=== PATIENT | male | born 1935 | race Caucasian/White ===

== ENCOUNTER 2019-03-06 12:01 | Inpatient (IN) | payer OTHER ==
[~2019-03-06] VITALS: Ht 182.9 cm; Wt 79.5 kg
[~2019-03-06 12:01] MED LIST: VANCOMYCIN 1gm/H2O 200ml PB 200 ML IV SCH
[2019-03-06] MEDS ORDERED: normal saline 1000ML IV soln IVB ONE ×3 (12:55→16:45)
[2019-03-06] MEDS ORDERED: benzonatate 100mg capsule PO ONE (12:55)
[2019-03-06] MEDS ORDERED: ipratropium/albuterol 3ml nebule NEB ONE (12:55)
[2019-03-06 13:27] LABS: BASOPHILS # (AUTO) 0.1 X10'3 (0-0.2); BASOPHILS % (AUTO) 0.5 % (0-1); EOSINOPHILS % (AUTO) 0 % (0-6); HEMOGLOBIN 10.8 g/dl (14.0-17.9); LYMPHOCYTES # (AUTO) 0.9 X10'3 (1.1-4.8); LYMPHOCYTES % (AUTO) 3.4 % (21-51); MEAN CORPUSCULAR HEMOGLOBIN 33.4 PG (27.0-31.0); MEAN CORPUSCULAR HGB CONC 33.6 g/dL (33.0-36.5); MEAN CORPUSCULAR VOLUME 99.4 FL (78-98); MEAN PLATELET VOLUME 9.6 FL (7.4-10.4); MONOCYTES # (AUTO) 1.4 X10'3 (0-0.9); MONOCYTES % (AUTO) 5.3 % (2-12); NEUTROPHILS # (AUTO) 23.8 X10'3 (1.8-7.7); NEUTROPHILS % (AUTO) 90.8 % (42-75); PLATELET COUNT 572 X10'3 (140-440); RED BLOOD COUNT 3.22 X10'6 (4.70-6.10); RED CELL DISTRIBUTION WIDTH 17.2 % (11.5-14.5)
[2019-03-06 13:30] LABS: WHITE BLOOD COUNT 26.2 X10'3 (4.5-11.0)
[2019-03-06 14:02] LABS: ANION GAP 11 (8-16); BILIRUBIN,TOTAL 1.6 MG/DL (0.1-1.0); BLOOD UREA NITROGEN 21 MG/DL (7-18); BUN/CREATININE RATIO 19.1 (5.4-32.0); CALCIUM 8.7 MG/DL (8.5-10.1); CHLORIDE 99 MMOL/L (99-107); GLUCOSE 147 MG/DL (70-104); SODIUM 138 MMOL/L (135-145); TOTAL CARBON DIOXIDE 28.1 MMOL/L (24-32); eGFR 64 ML/MIN
[2019-03-06 14:03] LABS: ALANINE AMINOTRANSFERASE 43 U/L (12-78); ALBUMIN 3.3 G/DL (3.4-5.0); ALBUMIN/GLOBULIN RATIO 0.7 (1.1-1.5); ALKALINE PHOSPHATASE 88 IU/L (46-116); ASPARTATE AMINO TRANSFERASE 40 U/L (10-37)
[2019-03-06 14:07] LABS: TOTAL CELLS COUNTED 100
[2019-03-06 14:08] LABS: ANISOCYTOSIS 1+; PLATELET ESTIMATE INCREASED; TOXIC GRANULATION 2+
[2019-03-06 14:09] LABS: SCHISTOCYTES FEW
[2019-03-06 14:10] LABS: POLYCHROMASIA FEW; POTASSIUM 2.9 MMOL/L (3.5-5.1)
[2019-03-06] MEDS ORDERED: potassium Cl 10 mEq/100mL bag IV ONE (14:15)
[2019-03-06] MEDS ORDERED: celeCOXIB 100mg capsule PO SCH (15:20)
[2019-03-06 15:27] LABS: CLARITY,URINE SLIGHTLY CLOUDY (Clear); COLOR,URINE AMBER (Yellow); GLUCOSE, URINE NEGATIVE (Neg); KETONES,URINE 15 mg/dl (Neg); LEUKOCYTE ESTERASE ,URINE NEGATIVE (Neg); NITRITES, URINE NEGATIVE (Neg); OCCULT BLOOD,URINE TRACE-INTACT (Neg); PROTEIN,URINE 100 mg/dl (Neg)
[2019-03-06 15:40] LABS: UA COLLECTION TYPE STRAIGHT CATH
[2019-03-06 15:42] LABS: MUCUS STRANDS MODERATE /LPF (Neg); SQUAMOUS EPITHELIAL CELL,UR FEW /LPF (FEW)
[2019-03-06 15:44] LABS: RBC,URINE 0-2 /HPF (0-2); WBC,URINE 0-4 /HPF (0-4)
[2019-03-06 15:45] LABS: BACTERIA,URINE 2+ /HPF (Neg)
[2019-03-06] MEDS ORDERED: levoFLOXACIN-Levaquin 750MG/D5 150 ML IV ONE (16:30)
[2019-03-06] MEDS ORDERED: NO HOME MEDS (17:12)
[2019-03-06] MEDS ORDERED: ondansetron/PF 4mg/2ml inj IV PRN (18:35)
[2019-03-06] MEDS ORDERED: magnesium Cl slow-release 64mg tablet PO PRN (18:35)
[2019-03-06] MEDS ORDERED: acetaminophen 325mg tablet PO PRN (18:35)
[2019-03-06] MEDS ORDERED: potassium CL 10mEq/100ml bag 100 ML IV PRN ×2 (18:35)
[2019-03-06] MEDS ORDERED: magnesium 4gm in 100ml NS 100 ML IV PRN (18:35)
[2019-03-06] MEDS ORDERED: magnesium 2GM in 50ml NS 50 ML IV PRN (18:35)
[2019-03-06] MEDS ORDERED: morphine 2 MG/ML inj. syringe IV PRN (18:35)
[2019-03-06] MEDS: normal saline 1000ml 1,000 ML IV SCH (19:38)
[2019-03-06] MEDS: K and/or MAG REPLACEMENT MC SCH (20:00)
[2019-03-06] MEDS: potassium Cl 20 mEq SR tablet PO PRN (20:03)
[2019-03-06 21:40] VITALS: BP 154/76
--- NOTE | 2019-03-06 21:40 | NUR ---
PT ARRIVED FROM ER TO 4012B. PT HAS BEEN ORIENTED TO THE ROOM. RECEIVED REPORT FROM MONE HUNT PRIOR TO PT'S ARRIVAL.
[2019-03-06] MEDS: HYDROcodone/acetaminophen 5mg/325mg tablet PO PRN (21:50)
[2019-03-06] MEDS ORDERED: VANCOMYCIN 1gm/H2O 200ml PB 200 ML IV SCH (22:40)
[2019-03-07] MEDS: potassium Cl 20 mEq SR tablet PO PRN (01:00)
[2019-03-07] MEDS: piperacillin/tazo 3.375gm/50ml 50 ML IV SCH ×3 (01:01→16:43)
[2019-03-07] MEDS: HYDROcodone/acetaminophen 5mg/325mg tablet PO PRN ×3 (04:56→23:45)
[2019-03-07 05:00] VITALS: BP 167/71
[2019-03-07 06:21] LABS: BASOPHILS % (AUTO) 0.1 % (0-1); EOSINOPHILS % (AUTO) 0 % (0-6); HEMOGLOBIN 9.8 g/dl (14.0-17.9); LYMPHOCYTES # (AUTO) 0.7 X10'3 (1.1-4.8); LYMPHOCYTES % (AUTO) 4.2 % (21-51); MEAN CORPUSCULAR HEMOGLOBIN 33.7 PG (27.0-31.0); MEAN CORPUSCULAR HGB CONC 33.7 g/dL (33.0-36.5); MEAN CORPUSCULAR VOLUME 99.9 FL (78-98); MEAN PLATELET VOLUME 9.2 FL (7.4-10.4); MONOCYTES # (AUTO) 0.8 X10'3 (0-0.9); MONOCYTES % (AUTO) 4.6 % (2-12); NEUTROPHILS # (AUTO) 15.9 X10'3 (1.8-7.7); NEUTROPHILS % (AUTO) 91.1 % (42-75); PLATELET COUNT 350 X10'3 (140-440); RED BLOOD COUNT 2.91 X10'6 (4.70-6.10); RED CELL DISTRIBUTION WIDTH 16.6 % (11.5-14.5); WHITE BLOOD COUNT 17.5 X10'3 (4.5-11.0)
--- NOTE | 2019-03-07 06:23 | NUR ---
Problems reprioritized. Patient report given, questions answered & plan of care reviewed with MONE CA.
--- NOTE | 2019-03-07 06:49 | NUR ---
Patient in room ORTHO 4012B. I have received report from MONE MUSE and had the opportunity to ask questions and assume patient care.
[2019-03-07 07:09] LABS: ALBUMIN 2.7 G/DL (3.4-5.0); ANION GAP 11 (8-16); BLOOD UREA NITROGEN 20 MG/DL (7-18); CALCIUM 7.8 MG/DL (8.5-10.1); CHLORIDE 106 MMOL/L (99-107); CREATININE 0.87 MG/DL (0.60-1.10); GLUCOSE 93 MG/DL (70-104); POTASSIUM 3.6 MMOL/L (3.5-5.1); SODIUM 143 MMOL/L (135-145); TOTAL CARBON DIOXIDE 26.2 MMOL/L (24-32); eGFR 84 ML/MIN
[2019-03-07 07:32] LABS: % IRON SATURATION 64 % (11-46); IRON 92 UG/DL (53-167); TOTAL IRON BINDING CAPACITY 144 UG/DL (259-388)
[2019-03-07] MEDS: K and/or MAG REPLACEMENT MC SCH ×2 (08:00→19:49)
[2019-03-07] MEDS ORDERED: VANCOMYCIN 1gm/H2O 200ml PB 200 ML IV SCH (09:07)
[2019-03-07 10:00] VITALS: BP 150/74
[2019-03-07 11:15] LABS: ANISOCYTOSIS 1+; PLATELET ESTIMATE NORMAL; TOTAL CELLS COUNTED 100
[2019-03-07 11:16] LABS: POLYCHROMASIA FEW; SCHISTOCYTES 1+; TEAR DROP CELLS FEW
[2019-03-07 11:17] LABS: TOXIC GRANULATION 1+
[2019-03-07] MEDS: VANCOMYCIN 1gm/H2O 200ml PB 200 ML IV SCH ×2 (14:29→23:49)
[2019-03-07] MEDS: ipratropium/albuterol 3ml nebule NEB SCH ×2 (15:10→20:03)
[2019-03-07 18:00] VITALS: BP_SYST 118; BP_SYST 167; BP_DIAS 71; BP_DIAS 95
--- NOTE | 2019-03-07 18:00 | NUR ---
Patient in room ORTHO 4012. I have received report from MONE Juarez and had the opportunity to ask questions and assume patient care. Addendum: 03/07/19 at 1846 by Christine Ivan RN Amended: Links added.
--- NOTE | 2019-03-07 18:23 | NUR ---
Problems reprioritized. Patient report given, questions answered & plan of care reviewed with MONE CUEVAS.
[2019-03-07] MEDS: heparin, porcine 5000 units/ml vial SQ SCH (19:48)
[2019-03-07] MEDS: lactobacillus rhamnosus 10,000 MMU CELLS/CAPSULE PO SCH (19:48)
[2019-03-07 22:00] VITALS: BP 126/60
[2019-03-08] MEDS: piperacillin/tazo 3.375gm/50ml 50 ML IV SCH ×4 (01:18→23:38)
[2019-03-08] MEDS: HYDROcodone/acetaminophen 5mg/325mg tablet PO PRN ×3 (06:47→19:58)
[2019-03-08 06:52] VITALS: BP 105/48
--- NOTE | 2019-03-08 06:54 | NUR ---
Patient in room ORTHO 4012B. I have received report from MONE CUEVAS and had the opportunity to ask questions and assume patient care.
[2019-03-08 07:23] LABS: ALBUMIN 2.5 G/DL (3.4-5.0); ANION GAP 8 (8-16); BLOOD UREA NITROGEN 15 MG/DL (7-18); CALCIUM 7.7 MG/DL (8.5-10.1); CHLORIDE 103 MMOL/L (99-107); CREATININE 0.88 MG/DL (0.60-1.10); GLUCOSE 88 MG/DL (70-104); MAGNESIUM 2.1 MG/DL (1.5-2.4); POTASSIUM 3.1 MMOL/L (3.5-5.1); SODIUM 139 MMOL/L (135-145); TOTAL CARBON DIOXIDE 27.8 MMOL/L (24-32); eGFR 83 ML/MIN
[2019-03-08 07:26] LABS: BASOPHILS % (AUTO) 0.2 % (0-1); EOSINOPHILS # (AUTO) 0.1 X10'3 (0-0.9); EOSINOPHILS % (AUTO) 0.3 % (0-6); HEMATOCRIT 27.4 % (42.0-52.0); HEMOGLOBIN 9.3 g/dl (14.0-17.9); LYMPHOCYTES # (AUTO) 1.2 X10'3 (1.1-4.8); LYMPHOCYTES % (AUTO) 5.9 % (21-51); MEAN CORPUSCULAR HEMOGLOBIN 33.9 PG (27.0-31.0); MEAN CORPUSCULAR VOLUME 99.9 FL (78-98); MEAN PLATELET VOLUME 9.3 FL (7.4-10.4); MONOCYTES # (AUTO) 0.7 X10'3 (0-0.9); MONOCYTES % (AUTO) 3.6 % (2-12); NEUTROPHILS # (AUTO) 17.9 X10'3 (1.8-7.7); PLATELET COUNT 400 X10'3 (140-440); RED BLOOD COUNT 2.75 X10'6 (4.70-6.10); RED CELL DISTRIBUTION WIDTH 16.9 % (11.5-14.5); WHITE BLOOD COUNT 19.9 X10'3 (4.5-11.0)
[2019-03-08] MEDS: ipratropium/albuterol 3ml nebule NEB SCH ×3 (07:53→20:17)
[2019-03-08] MEDS: K and/or MAG REPLACEMENT MC SCH ×2 (08:00→20:00)
[2019-03-08 10:00] VITALS: BP 147/99
[2019-03-08] MEDS: lactobacillus rhamnosus 10,000 MMU CELLS/CAPSULE PO SCH ×2 (10:06→19:57)
[2019-03-08] MEDS: potassium Cl 20 mEq SR tablet PO PRN ×2 (10:07→16:10)
[2019-03-08] MEDS: heparin, porcine 5000 units/ml vial SQ SCH ×2 (10:09→20:00)
[2019-03-08] MEDS ORDERED: VANCOMYCIN LEVEL IV ONE (10:30)
[2019-03-08 10:37] LABS: ANISOCYTOSIS 1+; NUCLEATED RED BLOOD CELLS 1 /100WBC (0-0); PLATELET ESTIMATE NORMAL; TOTAL CELLS COUNTED 100
[2019-03-08 10:38] LABS: TOXIC GRANULATION 1+
[2019-03-08 10:39] LABS: POLYCHROMASIA 1+; SCHISTOCYTES 1+
[2019-03-08] MEDS: VANCOmycin 1250MG/NS 250ml Bag 250 ML IV SCH (16:07)
[2019-03-08 18:00] VITALS: BP 144/63
[2019-03-08] MEDS: normal saline 1000ml 1,000 ML IV SCH (18:31)
--- NOTE | 2019-03-08 18:49 | NUR ---
Problems reprioritized. Patient report given, questions answered & plan of care reviewed with MONE FAIR.
[2019-03-08 22:00] VITALS: BP 128/65
[2019-03-09] MEDS: VANCOmycin 1250MG/NS 250ml Bag 250 ML IV SCH (05:46)
[2019-03-09] MEDS: HYDROcodone/acetaminophen 5mg/325mg tablet PO PRN ×3 (05:48→17:32)
[2019-03-09 06:00] VITALS: BP 152/69
[2019-03-09 06:05] LABS: BASOPHILS # (AUTO) 0.1 X10'3 (0-0.2); BASOPHILS % (AUTO) 0.3 % (0-1); EOSINOPHILS # (AUTO) 0.2 X10'3 (0-0.9); EOSINOPHILS % (AUTO) 0.9 % (0-6); HEMATOCRIT 27.9 % (42.0-52.0); HEMOGLOBIN 9.4 g/dl (14.0-17.9); LYMPHOCYTES % (AUTO) 5.7 % (21-51); MEAN CORPUSCULAR HEMOGLOBIN 33.8 PG (27.0-31.0); MEAN CORPUSCULAR HGB CONC 33.7 g/dL (33.0-36.5); MEAN CORPUSCULAR VOLUME 100.3 FL (78-98); MONOCYTES # (AUTO) 0.7 X10'3 (0-0.9); MONOCYTES % (AUTO) 3.7 % (2-12); NEUTROPHILS # (AUTO) 16.3 X10'3 (1.8-7.7); NEUTROPHILS % (AUTO) 89.4 % (42-75); PLATELET COUNT 424 X10'3 (140-440); RED BLOOD COUNT 2.78 X10'6 (4.70-6.10); RED CELL DISTRIBUTION WIDTH 17.3 % (11.5-14.5); WHITE BLOOD COUNT 18.2 X10'3 (4.5-11.0)
--- NOTE | 2019-03-09 06:50 | NUR ---
Patient in room ORTHO 4012. I have received report from Michael SHORE and had the opportunity to ask questions and assume patient care.
[2019-03-09 06:58] LABS: ALBUMIN 2.5 G/DL (3.4-5.0); ANION GAP 9 (8-16); BLOOD UREA NITROGEN 13 MG/DL (7-18); BUN/CREATININE RATIO 14.6 (5.4-32.0); CALCIUM 7.9 MG/DL (8.5-10.1); CHLORIDE 105 MMOL/L (99-107); CREATININE 0.89 MG/DL (0.60-1.10); GLUCOSE 83 MG/DL (70-104); MAGNESIUM 2.2 MG/DL (1.5-2.4); POTASSIUM 3.5 MMOL/L (3.5-5.1); SODIUM 141 MMOL/L (135-145); TOTAL CARBON DIOXIDE 26.8 MMOL/L (24-32); eGFR 82 ML/MIN
[2019-03-09] MEDS: ipratropium/albuterol 3ml nebule NEB SCH ×3 (07:33→21:13)
[2019-03-09] MEDS: K and/or MAG REPLACEMENT MC SCH ×2 (07:47→20:00)
[2019-03-09 08:19] LABS: ANISOCYTOSIS 1+; PLATELET ESTIMATE NORMAL; POIKILOCYTOSIS FEW; POLYCHROMASIA FEW; TOTAL CELLS COUNTED 100; TOXIC GRANULATION 1+
[2019-03-09] MEDS: heparin, porcine 5000 units/ml vial SQ SCH ×2 (08:22→20:42)
[2019-03-09] MEDS: lactobacillus rhamnosus 10,000 MMU CELLS/CAPSULE PO SCH ×2 (08:22→20:41)
[2019-03-09] MEDS: piperacillin/tazo 3.375gm/50ml 50 ML IV SCH (08:23)
[2019-03-09 10:00] VITALS: BP 103/58
--- NOTE | 2019-03-09 18:27 | NUR ---
Problems reprioritized. Patient report given, questions answered & plan of care reviewed with Michael SHORE.
[2019-03-10] MEDS ORDERED: VANCOMYCIN LEVEL IV ONE (02:30)
[2019-03-10 05:00] VITALS: BP 171/98
[2019-03-10] MEDS: HYDROcodone/acetaminophen 5mg/325mg tablet PO PRN ×2 (05:01→09:15)
--- NOTE | 2019-03-10 06:51 | NUR ---
Patient in room ORTHO 4012B. I have received report from MONE FAIR and had the opportunity to ask questions and assume patient care.
[2019-03-10] MEDS: K and/or MAG REPLACEMENT MC SCH ×2 (07:16→08:00)
[2019-03-10 07:28] LABS: BASOPHILS # (AUTO) 0.1 X10'3 (0-0.2); BASOPHILS % (AUTO) 0.4 % (0-1); EOSINOPHILS # (AUTO) 0.1 X10'3 (0-0.9); EOSINOPHILS % (AUTO) 0.3 % (0-6); HEMATOCRIT 28.1 % (42.0-52.0); HEMOGLOBIN 9.4 g/dl (14.0-17.9); LYMPHOCYTES # (AUTO) 1.1 X10'3 (1.1-4.8); MEAN CORPUSCULAR HEMOGLOBIN 33.2 PG (27.0-31.0); MEAN CORPUSCULAR HGB CONC 33.5 g/dL (33.0-36.5); MEAN CORPUSCULAR VOLUME 99.1 FL (78-98); MEAN PLATELET VOLUME 8.6 FL (7.4-10.4); MONOCYTES % (AUTO) 4.6 % (2-12); NEUTROPHILS % (AUTO) 89.7 % (42-75); PLATELET COUNT 399 X10'3 (140-440); RED BLOOD COUNT 2.84 X10'6 (4.70-6.10); RED CELL DISTRIBUTION WIDTH 17.7 % (11.5-14.5); WHITE BLOOD COUNT 22.3 X10'3 (4.5-11.0)
[2019-03-10 07:52] LABS: ANISOCYTOSIS 1+; PLATELET ESTIMATE NORMAL; POLYCHROMASIA FEW; TOTAL CELLS COUNTED 100
[2019-03-10 07:56] LABS: ALBUMIN 2.6 G/DL (3.4-5.0); ANION GAP 10 (8-16); BLOOD UREA NITROGEN 19 MG/DL (7-18); BUN/CREATININE RATIO 10.1 (5.4-32.0); CALCIUM 8.3 MG/DL (8.5-10.1); CHLORIDE 107 MMOL/L (99-107); CREATININE 1.89 MG/DL (0.60-1.10); GLUCOSE 103 MG/DL (70-104); MAGNESIUM 2.4 MG/DL (1.5-2.4); POTASSIUM 3.3 MMOL/L (3.5-5.1); SODIUM 143 MMOL/L (135-145); TOTAL CARBON DIOXIDE 26.4 MMOL/L (24-32); VANCOMYCIN,TROUGH 13.1 UG/ML (6.0-14.0); eGFR 34 ML/MIN
[2019-03-10] MEDS: lactobacillus rhamnosus 10,000 MMU CELLS/CAPSULE PO SCH (08:44)
[2019-03-10] MEDS: heparin, porcine 5000 units/ml vial SQ SCH (08:44)
[2019-03-10] MEDS: ipratropium/albuterol 3ml nebule NEB SCH ×2 (08:59→15:17)
[2019-03-10 09:00] VITALS: BP 146/77
--- NOTE | 2019-03-10 09:14 | NUR ---
PAGER ID: [phone] MESSAGE: LANNY [id number]:MICHAEL LEGGETT 4012B...CAN I GET A NEW ORDER FOR POTASSIUM REPLACEMENT, K+ 3.3
[2019-03-10] MEDS ORDERED: levoFLOXACIN 750MG TABLET PO SCH (11:00)
[2019-03-10] MEDS ORDERED: ALBU8HFA PO (12:44)
[2019-03-10] MEDS ORDERED: LEVO750T46 PO (12:44)
--- NOTE | 2019-03-10 15:59 | NUR ---
pt dc in stable condition
[2019-03-11] MEDS ORDERED: DOXY100C43 PO (12:57)
[2019-03-11] MEDS ORDERED: OMEP40CA13 PO (12:57)
[2019-03-11] MEDS ORDERED: NO HOME MEDS (23:55)
[2019-03-13] MEDS ORDERED: RISE35TA PO (19:25)
== END 2019-03-10 15:45 | disposition home or self-care (01) | DRG 871 ==
LOC: ER 12:04 → ED HOLD 18:31 → EDBEDREQ 20:52 → ORTHO 4S 21:30
PROVIDERS: ADMIT Internal Medicine; ATTEND Internal Medicine
DX: A41.9 Sepsis, unspecified organism (principal); J18.9 Pneumonia, unspecified organism; M48.56XA Collapsed vertebra, not elsewhere classified, lumbar region, initial encounter for fracture; D53.9 Nutritional anemia, unspecified; E87.6 Hypokalemia; M85.80 Other specified disorders of bone density and structure, unspecified site; R32 Unspecified urinary incontinence; Z59.0 Homelessness; Z79.899 Other long term (current) drug therapy; Z85.46 Personal history of malignant neoplasm of prostate; Z87.891 Personal history of nicotine dependence; Z92.3 Personal history of irradiation
CPT/HCPCS: 36415; 71046; 72040; 72070; 72100; 80048; 80053; 80202; 81001; 83540; 83550; 83605; 83735; 84153; 84484; 85025; 87040; 87070; 87081; 87502; 87503; 93005; 94640; 94760; 97116; 97162; 97530; 97535; 99285; G0378; J1644; J1956; J2270; J2543; J3370; J3480; J7030

== ENCOUNTER 2019-03-11 11:38 | Emergency (ER) | payer MEDICARE, OTHER ==
[~2019-03-11] VITALS: Ht 172.7 cm; Wt 84.1 kg
[~2019-03-11 11:38] MED LIST changes: +ALBU8HFA PO; +LEVO750T46 PO; -VANCOMYCIN 1gm/H2O 200ml PB 200 ML IV SCH
[2019-03-11] MEDS ORDERED: pantoprazole 40MG/NS 100ML BAG 100 ML IV SCH (12:15)
[2019-03-11] MEDS ORDERED: pantoprazole 40 MG vial IV ONE (12:15)
[2019-03-11 12:49] LABS: BASOPHILS # (AUTO) 0.1 X10'3 (0-0.2); BASOPHILS % (AUTO) 0.4 % (0-1); EOSINOPHILS # (AUTO) 0.1 X10'3 (0-0.9); EOSINOPHILS % (AUTO) 0.2 % (0-6); HEMATOCRIT 31.3 % (42.0-52.0); HEMOGLOBIN 10.4 g/dl (14.0-17.9); LYMPHOCYTES # (AUTO) 1.2 X10'3 (1.1-4.8); MEAN CORPUSCULAR HEMOGLOBIN 33.2 PG (27.0-31.0); MEAN CORPUSCULAR HGB CONC 33.3 g/dL (33.0-36.5); MEAN CORPUSCULAR VOLUME 99.6 FL (78-98); MONOCYTES % (AUTO) 3.9 % (2-12); NEUTROPHILS # (AUTO) 22.2 X10'3 (1.8-7.7); NEUTROPHILS % (AUTO) 90.5 % (42-75); PLATELET COUNT 503 X10'3 (140-440); RED BLOOD COUNT 3.14 X10'6 (4.70-6.10); RED CELL DISTRIBUTION WIDTH 17.8 % (11.5-14.5); WHITE BLOOD COUNT 24.5 X10'3 (4.5-11.0)
[2019-03-11 12:56] LABS: PARTIAL THROMBOPLASTIN TIME 27 SECONDS (22-32)
[2019-03-11] MEDS ORDERED: OMEP40CA13 PO (12:57)
[2019-03-11] MEDS ORDERED: DOXY100C43 PO (12:57)
[2019-03-11 13:02] LABS: ALANINE AMINOTRANSFERASE 40 U/L (12-78); ALBUMIN/GLOBULIN RATIO 0.6 (1.1-1.5); ALKALINE PHOSPHATASE 129 IU/L (46-116); ANION GAP 9 (8-16); ASPARTATE AMINO TRANSFERASE 39 U/L (10-37); BLOOD UREA NITROGEN 28 MG/DL (7-18); BUN/CREATININE RATIO 13.2 (5.4-32.0); CALCIUM 8.8 MG/DL (8.5-10.1); CHLORIDE 107 MMOL/L (99-107); CREATININE 2.12 MG/DL (0.60-1.10); GLUCOSE 113 MG/DL (70-104); POTASSIUM 3.4 MMOL/L (3.5-5.1); SODIUM 143 MMOL/L (135-145); TOTAL CARBON DIOXIDE 26.7 MMOL/L (24-32); TOTAL PROTEIN 7.7 G/DL (6.4-8.2); eGFR 30 ML/MIN
[2019-03-11] MEDS ORDERED: ringers solution, lacted 1,000 ML IV ONE (13:20)
[2019-03-11 14:10] LABS: ANISOCYTOSIS 1+; NUCLEATED RED BLOOD CELLS 1 /100WBC (0-0); PLATELET ESTIMATE INCREASED; TOTAL CELLS COUNTED 100; TOXIC GRANULATION 1+
[2019-03-11 14:11] LABS: POLYCHROMASIA 1+
[2019-03-11 15:58] VITALS: BP 153/66
[2019-03-11] MEDS ORDERED: NO HOME MEDS (23:55)
[2019-03-13 10:32] LABS: OCCULT BLOOD STOOL POSITIVE (Neg)
[2019-03-13] MEDS ORDERED: RISE35TA PO (19:25)
== END 2019-03-11 16:01 | disposition home or self-care (01) ==
LOC: ER 11:39
DX: K92.1 Melena (principal); J18.9 Pneumonia, unspecified organism; R10.84 Generalized abdominal pain; Z59.0 Homelessness; Z56.0 Unemployment, unspecified; Z85.46 Personal history of malignant neoplasm of prostate; Z79.899 Other long term (current) drug therapy
CPT/HCPCS: 36415; 71045; 80053; 82140; 82272; 84484; 85025; 85610; 85730; 86885; 86900; 86901; 93005; 96374; 99284; C9113; J7120

== ENCOUNTER 2019-03-11 19:03 | Emergency (ER) | payer MEDICARE ==
[~2019-03-11] VITALS: Ht 172.7 cm; Wt 84.1 kg
[~2019-03-11 19:03] MED LIST changes: +DOXY100C43 PO; +OMEP40CA13 PO
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
[2019-03-11] MEDS ORDERED: CefTRIAXone 2gm/D5W 50ml 50 ML IV ONE (20:35)
[2019-03-11] MEDS ORDERED: normal saline 1000ML IV soln IVB ONE (20:40)
[2019-03-11 21:00] LABS: BASOPHILS # (AUTO) 0.3 X10'3 (0-0.2); BASOPHILS % (AUTO) 1.1 % (0-1); EOSINOPHILS # (AUTO) 0.1 X10'3 (0-0.9); EOSINOPHILS % (AUTO) 0.3 % (0-6); HEMATOCRIT 29.1 % (42.0-52.0); LYMPHOCYTES # (AUTO) 1.4 X10'3 (1.1-4.8); MEAN CORPUSCULAR HEMOGLOBIN 34.2 PG (27.0-31.0); MEAN CORPUSCULAR HGB CONC 34.4 g/dL (33.0-36.5); MEAN CORPUSCULAR VOLUME 99.4 FL (78-98); MEAN PLATELET VOLUME 8.4 FL (7.4-10.4); MONOCYTES # (AUTO) 0.9 X10'3 (0-0.9); MONOCYTES % (AUTO) 3.6 % (2-12); NEUTROPHILS # (AUTO) 21.2 X10'3 (1.8-7.7); PLATELET COUNT 449 X10'3 (140-440); RED BLOOD COUNT 2.93 X10'6 (4.70-6.10); RED CELL DISTRIBUTION WIDTH 17.9 % (11.5-14.5); WHITE BLOOD COUNT 23.8 X10'3 (4.5-11.0)
[2019-03-11 21:13] LABS: PARTIAL THROMBOPLASTIN TIME 28 SECONDS (22-32)
[2019-03-11 21:14] LABS: ALANINE AMINOTRANSFERASE 41 U/L (12-78); ALBUMIN 2.9 G/DL (3.4-5.0); ALBUMIN/GLOBULIN RATIO 0.7 (1.1-1.5); ALKALINE PHOSPHATASE 123 IU/L (46-116); ANION GAP 10 (8-16); ASPARTATE AMINO TRANSFERASE 40 U/L (10-37); BILIRUBIN,TOTAL 0.9 MG/DL (0.1-1.0); BLOOD UREA NITROGEN 29 MG/DL (7-18); BUN/CREATININE RATIO 13.9 (5.4-32.0); CALCIUM 8.3 MG/DL (8.5-10.1); CHLORIDE 106 MMOL/L (99-107); CREATININE 2.09 MG/DL (0.60-1.10); GLUCOSE 108 MG/DL (70-104); MAGNESIUM 2.4 MG/DL (1.5-2.4); POTASSIUM 3.2 MMOL/L (3.5-5.1); SODIUM 141 MMOL/L (135-145); TOTAL CARBON DIOXIDE 25.3 MMOL/L (24-32); TOTAL PROTEIN 7.3 G/DL (6.4-8.2); eGFR 30 ML/MIN
[2019-03-11 21:24] LABS: ANISOCYTOSIS 1+; PLATELET ESTIMATE INCREASED; POLYCHROMASIA 1+; TOTAL CELLS COUNTED 100; TOXIC GRANULATION 1+
[2019-03-11 23:02] LABS: CLARITY,URINE CLEAR (Clear); COLOR,URINE YELLOW (Yellow); GLUCOSE, URINE NEGATIVE (Neg); KETONES,URINE NEGATIVE (Neg); LEUKOCYTE ESTERASE ,URINE SMALL (Neg); NITRITES, URINE NEGATIVE (Neg); OCCULT BLOOD,URINE TRACE-INTACT (Neg); PH,URINE 5.5 (4.8-8.0); PROTEIN,URINE NEGATIVE (Neg); UROBILINOGEN,URINE 0.2 E.U/dL (0.2-1.0)
[2019-03-11 23:07] LABS: UA COLLECTION TYPE CLN CATCH MIDSTREAM
[2019-03-11 23:08] LABS: BACTERIA,URINE FEW /HPF (Neg); RBC,URINE 0-2 /HPF (0-2); SQUAMOUS EPITHELIAL CELL,UR FEW /LPF (FEW)
[2019-03-11] MEDS ORDERED: NO HOME MEDS (23:55)
[2019-03-12] MEDS ORDERED: potassium Cl 20 mEq SR tablet PO STA (00:52)
--- NOTE | 2019-03-12 08:45 | NUR ---
SPOKE WITH ALANNA FROM [facility]. SS AWARE OF THIS PT AND WILL BE COMING DOWN TO SPEAK/FU WITH PT AND CURRENT PLAN UNTIL SET UP WITH HOUSING
[2019-03-12 10:16] VITALS: BP 144/65
[2019-03-13] MEDS ORDERED: RISE35TA PO (19:25)
[2019-03-16] MEDS ORDERED: DOXY-224 PO (10:58)
[2019-03-16] MEDS ORDERED: VITA1TAB15 PO (10:58)
== END 2019-03-12 10:18 | disposition home or self-care (01) ==
LOC: ER 19:04
DX: R32 Unspecified urinary incontinence (principal); D72.829 Elevated white blood cell count, unspecified; E87.6 Hypokalemia; N17.9 Acute kidney failure, unspecified; Z87.01 Personal history of pneumonia (recurrent); Z59.0 Homelessness; Z87.891 Personal history of nicotine dependence; Z56.0 Unemployment, unspecified; Z85.46 Personal history of malignant neoplasm of prostate; Z79.899 Other long term (current) drug therapy
CPT/HCPCS: 36415; 71045; 80053; 81001; 83605; 83735; 84145; 85025; 85610; 85730; 87040; 87077; 87088; 87186; 96365; 99284; J0696; J7030

== ENCOUNTER 2019-12-05 22:10 | Emergency (ER) | payer OTHER, MEDICARE ==
[~2019-12-05] VITALS: Ht 172.7 cm; Wt 63.1 kg
[~2019-12-05 22:10] MED LIST changes: -ALBU8HFA PO; +DOXY-224 PO; -DOXY100C43 PO; -LEVO750T46 PO; -OMEP40CA13 PO; +RISE35TA PO; +VITA1TAB15 PO
--- NOTE | 2019-12-05 22:44 | NUR ---
CERVICAL SPINE UNABLE TO BE PLACE UNIT DOES NOT HAVE ANY IN STOCK NOTIFIED CHARGE NURSE AND MD OF THE DELAYED PLACEMENT DUE TO UNAVAILABLITY
[2019-12-05] MEDS ORDERED: acetaminophen 325mg tablet PO ONE (22:45)
[2019-12-05] MEDS ORDERED: LIDOcaine 5% patch TP ONE (22:45)
[2019-12-05 22:55] LABS: BASOPHILS # (AUTO) 0.1 X10'3 (0-0.2); BASOPHILS % (AUTO) 1.2 % (0-1); EOSINOPHILS # (AUTO) 0.3 X10'3 (0-0.9); EOSINOPHILS % (AUTO) 2.2 % (0-6); HEMATOCRIT 35.7 % (42.0-52.0); HEMOGLOBIN 11.9 g/dl (14.0-17.9); LYMPHOCYTES # (AUTO) 0.6 X10'3 (1.1-4.8); LYMPHOCYTES % (AUTO) 4.9 % (21-51); MEAN CORPUSCULAR HEMOGLOBIN 34.1 PG (27.0-31.0); MEAN CORPUSCULAR HGB CONC 33.3 g/dL (33.0-36.5); MEAN CORPUSCULAR VOLUME 102.3 FL (78-98); MEAN PLATELET VOLUME 8.5 FL (7.4-10.4); MONOCYTES # (AUTO) 0.6 X10'3 (0-0.9); MONOCYTES % (AUTO) 4.9 % (2-12); NEUTROPHILS # (AUTO) 10.5 X10'3 (1.8-7.7); NEUTROPHILS % (AUTO) 86.8 % (42-75); PLATELET COUNT 432 X10'3 (140-440); RED BLOOD COUNT 3.49 X10'6 (4.70-6.10); RED CELL DISTRIBUTION WIDTH 19.2 % (11.5-14.5)
[2019-12-05 23:09] LABS: ALANINE AMINOTRANSFERASE 17 U/L (12-78); ALBUMIN 4.1 G/DL (3.4-5.0); ALBUMIN/GLOBULIN RATIO 1.1 (1.1-1.5); ALKALINE PHOSPHATASE 92 IU/L (46-116); ANION GAP 12 (8-16); ASPARTATE AMINO TRANSFERASE 20 U/L (10-37); BILIRUBIN,TOTAL 1.1 MG/DL (0.1-1.0); BLOOD UREA NITROGEN 27 MG/DL (7-18); BUN/CREATININE RATIO 29.3 (5.4-32.0); CALCIUM 9.5 MG/DL (8.5-10.1); CHLORIDE 102 MMOL/L (99-107); CREATININE 0.92 MG/DL (0.60-1.10); GLUCOSE 111 MG/DL (70-104); POTASSIUM 3.7 MMOL/L (3.5-5.1); SODIUM 140 MMOL/L (135-145); TOTAL CARBON DIOXIDE 25.8 MMOL/L (24-32); TOTAL PROTEIN 7.8 G/DL (6.4-8.2); eGFR 79 ML/MIN
[2019-12-05 23:16] LABS: MAGNESIUM 2.1 MG/DL (1.5-2.4)
[2019-12-05] MEDS ORDERED: ACET-812 PO (23:58)
[2019-12-05] MEDS ORDERED: LIDO700A32 TOP (23:58)
--- NOTE | 2019-12-06 00:13 | NUR ---
This pt has been homeless x 2 years. He said he does his best. he has a daughter in [place] that he doesn't get along with. [facility] He said he has no belongings, no tent. He just wants to be discharged.
--- NOTE | 2019-12-06 00:23 | NUR ---
PT SAID HE WOULD TAKE A TAXI TO A [facility], "I USUALLY TRY TO STAY IN A [facility]...AND I HAVE MONEY FOR A ROOM"
--- NOTE | 2019-12-06 00:32 | NUR ---
pt changed his clothes, I assisted him to get the stool off of him. Got him cream for his sore red skin to bottom and he put on a fresh attends. He washed his hands good.
[2019-12-06 00:37] VITALS: BP 109/72
[2019-12-06] MEDS ORDERED: ORPH100T2 PO (20:35)
[2019-12-06] MEDS ORDERED: IBUP-1984 PO (20:35)
== END 2019-12-06 00:40 | disposition home or self-care (01) ==
LOC: ER 22:11
DX: S00.81XA Abrasion of other part of head, initial encounter (principal); R07.81 Pleurodynia; Z59.0 Homelessness; Z56.0 Unemployment, unspecified; Z79.899 Other long term (current) drug therapy; W18.30XA Fall on same level, unspecified, initial encounter; Y93.89 Activity, other specified; Y92.89 Other specified places as the place of occurrence of the external cause; Y99.9 Unspecified external cause status
CPT/HCPCS: 36415; 70450; 71045; 72125; 80053; 83735; 83880; 84484; 85025; 85610; 93005; 99285

== ENCOUNTER 2019-12-06 18:39 | Emergency (ER) | payer OTHER, MEDICARE ==
[~2019-12-06] VITALS: Ht 172.7 cm; Wt 62.7 kg
[~2019-12-06 18:39] MED LIST changes: +ACET-812 PO; +LIDO700A32 TOP
[2019-12-06 18:59] VITALS: BP 119/71
[2019-12-06] MEDS ORDERED: ketorolac tromethamine 15mg/ml inj. IM ONE (19:55)
[2019-12-06] MEDS ORDERED: cyclobenzaprine 10mg tablet PO ONE (19:55)
[2019-12-06] MEDS ORDERED: ORPH100T2 PO (20:35)
[2019-12-06] MEDS ORDERED: IBUP-1984 PO (20:35)
== END 2019-12-06 21:19 | disposition home or self-care (01) ==
LOC: ER 18:42
DX: M54.5 Low back pain (principal); Z59.0 Homelessness; Z56.0 Unemployment, unspecified; Z79.899 Other long term (current) drug therapy
CPT/HCPCS: 96372; 99284; J1885